=== PATIENT | female | born 1955 | race Caucasian/White ===

== ENCOUNTER → 2021-05-08 | Outpatient (CLI) | payer OTHER ==
[~2021-05-08] MED LIST: AC500T PO; ACHD5005 PO; CPR500T PO; NITR100C3 PO; OXYC-12 PO
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
== END ==
LOC: RAD 11:42
PROVIDERS: ATTEND Pediatrics
DX: S09.90XA Unspecified injury of head, initial encounter (principal); M47.812 Spondylosis without myelopathy or radiculopathy, cervical region; M47.814 Spondylosis without myelopathy or radiculopathy, thoracic region; M47.816 Spondylosis without myelopathy or radiculopathy, lumbar region; V89.2XXA Person injured in unspecified motor-vehicle accident, traffic, initial encounter
CPT/HCPCS: 70450; 72040; 72072; 72110

== ENCOUNTER → 2021-08-11 | Outpatient (CLI) | payer OTHER ==
[~2021-08-11] MED LIST changes: +GADOTERATE 0.5 MMOL/ML (CLARISCAN) 15 ML VIAL IV ONE
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
== END ==
LOC: RAD 10:15
PROVIDERS: ATTEND Pediatrics
DX: R29.810 Facial weakness (principal); V89.2XXS Person injured in unspecified motor-vehicle accident, traffic, sequela
CPT/HCPCS: 70553

== ENCOUNTER → 2021-12-21 | Outpatient (CLI) | payer MEDICARE ==
[~2021-12-21] MED LIST changes: -GADOTERATE 0.5 MMOL/ML (CLARISCAN) 15 ML VIAL IV ONE
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
== END ==
LOC: RAD 14:00
PROVIDERS: ATTEND Pediatrics
DX: M47.817 Spondylosis without myelopathy or radiculopathy, lumbosacral region (principal); M51.36 Other intervertebral disc degeneration, lumbar region; M51.27 Other intervertebral disc displacement, lumbosacral region; M48.07 Spinal stenosis, lumbosacral region
CPT/HCPCS: 72148